=== PATIENT | male | born 1935 | race Caucasian/White ===

== ENCOUNTER 2017-05-19 09:44 | Emergency (ER) | payer MEDICARE, BC ==
[~2017-05-19] VITALS: Ht 170.2 cm; Wt 63.5 kg
[2017-05-19 09:57] VITALS: BP 183/109
[2017-05-19] MEDS ORDERED: NEOMYCIN-BACITRACIN-POLYM UNITDOSE PKG TOP OINT TOP ONE (10:15)
== END 2017-05-19 10:24 | disposition home or self-care (01) ==
LOC: ER 09:44
DX: I83.91 Asymptomatic varicose veins of right lower extremity (principal)

== ENCOUNTER 2018-03-07 03:30 | Inpatient (IN) | payer MEDICARE, OTHER ==
[~2018-03-07] VITALS: Ht 170.2 cm; Wt 62.9 kg
[2018-03-07 04:19] LABS: Hematocrit 21.3 % (41.0-53.0); Mean Corpuscular Hemoglobin 37.7 pg (28.0-32.0); Mean Corpuscular Hgb Conc. 33.1 g/dL (32.0-36.0); Mean Corpuscular Volume 114.1 fL (80.0-100.0); Platelet Count (auto) 110 10^3/uL (140-450); Red Blood Cells 1.87 10^6/uL (4.5-5.90); Red Cell Distribution Width 18.1 % (11.8-14.3)
[2018-03-07 04:34] LABS: INR 1.19 (0.9-1.15); Partial Thromboplastin Time 31.7 sec (23.78-33.04); Prothrombin Time 12.6 sec (9.27-12.13)
[2018-03-07 04:35] LABS: Alanine Aminotransferase 22 U/L (16-61); Albumin 3.6 g/dL (3.4-5.0); Anion Gap 9 (5-15); Aspartate Aminotransferase 19 U/L (15-37); BUN/Creatinine Ratio 22.5; Blood Urea Nitrogen 49 mg/dL (7-18); Calcium 7.5 mg/dL (8.5-10.1); Carbon Dioxide 24 mmol/L (21-32); Chloride 107 mmol/L (98-107); GFR African American 38 mL/min; GFR Non-African American 31 mL/min; Glucose 100 mg/dL (74-106); Magnesium 1.5 mg/dL (1.6-2.6); Sodium 140 mmol/L (136-145)
[2018-03-07 04:44] LABS: Alkaline Phosphatase 59 U/L (45-117); Bilirubin, Total 0.3 mg/dL (0.2-1.0); Total Protein 7.1 g/dL (6.4-8.2)
[2018-03-07 04:45] LABS: White Blood Cell 59.8 10^3/uL (4.4-10.8)
[2018-03-07 05:50] LABS: Band Neutrophils % (manual) 0; Basophils % (manual) 0 (0.0-2.0); Eosinophils % (manual) 0 (0-7); Metamyelocytes % 0; Myelocytes % 0; Promyelocytes % 0; Reactive Lymphocytes 0
[2018-03-07 06:07] LABS: Blast Cells 1; Lymphocytes % (manual) 16 (10.0-50.0); Monocytes % (manual) 80 (0-12)
[2018-03-07] MEDS ORDERED: SODIUM CHLORIDE 0.9% 1,000 ML IV ONE (08:00)
[2018-03-07] MEDS ORDERED: LIDOCAINE 2% (LOCAL ANESTH.) PF 5ml SDV ONE (10:04)
[2018-03-07] MEDS ORDERED: IBUPROFEN 600 MG TAB PO PRN (11:00)
[2018-03-07] MEDS ORDERED: MORPHINE SULF INJ 2 MG/ML SYRINGE 1ML IV PRN ×2 (11:00)
[2018-03-07] MEDS ORDERED: MAGNESIUM SULFATE 1GM/100ML 100 ML IV ONE (11:00)
[2018-03-07] MEDS ORDERED: ACETAMINOPHEN 325 MG TAB PO PRN (11:00)
[2018-03-07] MEDS ORDERED: TEMAZEPAM 15 MG CAP PO PRN (11:00)
[2018-03-07] MEDS ORDERED: ONDANSETRON HCL 4 MG/2 ML VIAL IV PRN (11:00)
[2018-03-07] MEDS ORDERED: FUROSEMIDE 20 MG TAB PO ONE ×2 (11:00→11:15)
[2018-03-07] MEDS ORDERED: NITROGLYCERIN 0.4 MG SL TAB SL PRN (11:00)
[2018-03-07] MEDS ORDERED: ASPirin-EC 81 mg tab PO ONE ×2 (11:00→11:15)
[2018-03-07] MEDS ORDERED: POTASSIUM CHL 20 Meq TABLET PO ONE (11:00)
[2018-03-07] MEDS ORDERED: MULTIPLE VITAMIN TAB PO ONE (11:15)
[2018-03-07] MEDS ORDERED: FAMOTIDINE 20 MG TAB PO ONE (11:15)
[2018-03-07] MEDS ORDERED: POTASSIUM CHL 10 Meq TABLET PO ONE (11:15)
[2018-03-07] MEDS: SODIUM CHLOR 0.9% PF (SALINE LOCK) 10ML VIAL/SYR IV SCH ×2 (12:00→21:55)
[2018-03-07 14:35] VITALS: BP 117/74
[2018-03-07 14:50] VITALS: BP 132/64
[2018-03-07 15:20] VITALS: BP 128/71
[2018-03-07 15:50] VITALS: BP 121/69
[2018-03-07] MEDS ORDERED: LORazepam 2MG/ML-1ML VIAL IV PRN (19:00)
[2018-03-07 20:03] LABS: Folate (Folic Acid) 16.95 ng/mL (5.38-24)
[2018-03-07 20:14] LABS: Urine Bacteria NONE SEEN /hpf (None Seen); Urine Blood 2+ /uL (Negative); Urine Specific Gravity 1.008 (1.001-1.035); Urine WBC 1 /hpf (0 - 3)
[2018-03-07] MEDS: FAMOTIDINE 20 MG TAB PO SCH (21:55)
[2018-03-07] MEDS: CARISOPRODOL 350 MG TAB PO SCH (21:55)
[2018-03-07 23:49] LABS: CSF White Blood Cells 2 CUMM (0-5)
[2018-03-08 05:20] VITALS: BP 123/52
[2018-03-08 06:45] LABS: Hemoglobin 8.4 g/dL (13.5-17.5)
[2018-03-08 06:49] LABS: Hematocrit 24.6 % (41.0-53.0); Mean Corpuscular Hemoglobin 38.2 pg (28.0-32.0); Mean Corpuscular Hgb Conc. 34.3 g/dL (32.0-36.0); Mean Corpuscular Volume 111.3 fL (80.0-100.0); Platelet Count (auto) 109 10^3/uL (140-450); Red Blood Cells 2.21 10^6/uL (4.5-5.90)
[2018-03-08] MEDS: SODIUM CHLOR 0.9% PF (SALINE LOCK) 10ML VIAL/SYR IV SCH ×3 (06:52→22:23)
[2018-03-08 06:53] LABS: Red Cell Distribution Width 21.8 % (11.8-14.3)
[2018-03-08 06:56] LABS: White Blood Cell 68.6 10^3/uL (4.4-10.8)
[2018-03-08 06:58] LABS: Band Neutrophils % (manual) 0; Basophils % (manual) 0 (0.0-2.0); Blast Cells 0; Eosinophils % (manual) 0 (0-7); Metamyelocytes % 0; Myelocytes % 0; Promyelocytes % 0; Reactive Lymphocytes 0
[2018-03-08 07:08] LABS: Albumin 3.6 g/dL (3.4-5.0); BUN/Creatinine Ratio 18.2; Bilirubin, Total 0.8 mg/dL (0.2-1.0); Calcium 7.6 mg/dL (8.5-10.1); Potassium 3.3 mmol/L (3.5-5.1); Total Protein 7.2 g/dL (6.4-8.2)
[2018-03-08 08:00] VITALS: BP 113/61
[2018-03-08] MEDS: POTASSIUM CHL 10 Meq TABLET PO SCH (09:44)
[2018-03-08] MEDS: ASPirin-EC 81 mg tab PO SCH (09:44)
[2018-03-08] MEDS: MULTIPLE VITAMIN TAB PO SCH (09:44)
[2018-03-08] MEDS: FAMOTIDINE 20 MG TAB PO SCH ×2 (09:46→22:20)
[2018-03-08] MEDS: CARISOPRODOL 350 MG TAB PO SCH ×2 (09:46→22:21)
[2018-03-08] MEDS ORDERED: FUROSEMIDE 20 MG TAB PO SCH (10:00)
[2018-03-08] MEDS: ALLOPURINOL 100 MG TAB PO SCH (10:15)
[2018-03-08 10:55] LABS: Lymphocytes % (manual) 21 (10.0-50.0); Monocytes % (manual) 76 (0-12)
[2018-03-08 12:00] VITALS: BP 103/47
[2018-03-08 16:00] VITALS: BP 124/67
[2018-03-08 22:00] VITALS: BP 112/55
[2018-03-08] MEDS: HYDROcodone-ACET 5/325MG TAB PO PRN (22:21)
[2018-03-09] MEDS: SODIUM CHLOR 0.9% PF (SALINE LOCK) 10ML VIAL/SYR IV SCH ×3 (05:15→22:27)
[2018-03-09 05:22] VITALS: BP 110/61
[2018-03-09 06:28] LABS: Hematocrit 23.4 % (41.0-53.0); Hemoglobin 7.9 g/dL (13.5-17.5)
[2018-03-09 06:35] LABS: Mean Corpuscular Hemoglobin 37.1 pg (28.0-32.0); Mean Corpuscular Hgb Conc. 33.6 g/dL (32.0-36.0); Mean Corpuscular Volume 110.5 fL (80.0-100.0); Platelet Count (auto) 99 10^3/uL (140-450); Red Blood Cells 2.12 10^6/uL (4.5-5.90)
[2018-03-09 06:39] LABS: % Iron Saturation 62.7 % (20-55)
[2018-03-09 06:41] LABS: White Blood Cell 77.5 10^3/uL (4.4-10.8)
[2018-03-09 06:42] LABS: Basophils % (manual) 0 (0.0-2.0); Eosinophils % (manual) 0 (0-7); Promyelocytes % 0; Reactive Lymphocytes 0
[2018-03-09 06:55] LABS: Albumin 3.4 g/dL (3.4-5.0); BUN/Creatinine Ratio 17.6; Bilirubin, Total 0.4 mg/dL (0.2-1.0); Calcium 7.6 mg/dL (8.5-10.1); Potassium 3.8 mmol/L (3.5-5.1); Total Protein 6.6 g/dL (6.4-8.2)
[2018-03-09 08:15] LABS: Ferritin 1126.7 ng/mL (10-322)
[2018-03-09 08:16] LABS: Folate (Folic Acid) 7.58 ng/mL (5.38-24)
[2018-03-09] MEDS ORDERED: LIDOCAINE 1% (LOCAL ANESTH.) PF 5ml SDV ONE (08:59)
[2018-03-09 09:00] VITALS: BP 102/61
[2018-03-09] MEDS ORDERED: LIDOCAINE 2%HCL (LOCAL ANESTH.) INJ 10ml MDV IJ ONE ×2 (09:00)
[2018-03-09] MEDS ORDERED: HYDROcodone-ACET 7.5/325MG TAB PO PRN (10:00)
[2018-03-09] MEDS: FAMOTIDINE 20 MG TAB PO SCH ×2 (10:03→22:27)
[2018-03-09] MEDS: MULTIPLE VITAMIN TAB PO SCH (10:03)
[2018-03-09] MEDS: POTASSIUM CHL 10 Meq TABLET PO SCH (10:03)
[2018-03-09] MEDS: ALLOPURINOL 100 MG TAB PO SCH (10:03)
[2018-03-09] MEDS: CARISOPRODOL 350 MG TAB PO SCH ×2 (10:04→22:28)
[2018-03-09] MEDS: ASPirin-EC 81 mg tab PO SCH (10:04)
[2018-03-09] MEDS: HYDROcodone-ACET 5/325MG TAB PO PRN ×2 (10:08→22:32)
[2018-03-09 12:00] LABS: Band Neutrophils % (manual) 2; Blast Cells 3; Lymphocytes % (manual) 7 (10.0-50.0); Metamyelocytes % 2; Myelocytes % 2
[2018-03-09 12:06] LABS: Monocytes % (manual) 81 (0-12)
[2018-03-09 13:00] VITALS: BP 102/54
[2018-03-09 17:00] VITALS: BP 108/58
[2018-03-09 22:00] VITALS: BP 107/55
[2018-03-10] VITALS (12 sets, daily range): BP systolic 97–118; BP diastolic 49–68
[2018-03-10] MEDS: SODIUM CHLOR 0.9% PF (SALINE LOCK) 10ML VIAL/SYR IV SCH ×3 (05:45→21:14)
[2018-03-10 05:49] LABS: Red Blood Cells 2.02 10^6/uL (4.5-5.90)
[2018-03-10 05:54] LABS: Hematocrit 22.4 % (41.0-53.0); Hemoglobin 7.5 g/dL (13.5-17.5); Mean Corpuscular Hemoglobin 36.9 pg (28.0-32.0); Mean Corpuscular Hgb Conc. 33.3 g/dL (32.0-36.0); Mean Corpuscular Volume 111.1 fL (80.0-100.0); Platelet Count (auto) 85 10^3/uL (140-450)
[2018-03-10 06:24] LABS: Red Cell Distribution Width 20.2 % (11.8-14.3); White Blood Cell 79.8 10^3/uL (4.4-10.8)
[2018-03-10 06:25] LABS: Band Neutrophils % (manual) 0; Basophils % (manual) 0 (0.0-2.0); Promyelocytes % 0; Reactive Lymphocytes 0
[2018-03-10] MEDS: DOCUSATE SOD 100 MG CAP PO PRN (06:41)
[2018-03-10 08:43] LABS: Lymphocytes % (manual) 5 (10.0-50.0)
[2018-03-10 08:44] LABS: Blast Cells 2; Eosinophils % (manual) 1 (0-7); Metamyelocytes % 2; Myelocytes % 2
[2018-03-10 08:46] LABS: Monocytes % (manual) 82 (0-12)
[2018-03-10] MEDS: ASPirin-EC 81 mg tab PO SCH (09:38)
[2018-03-10] MEDS: MULTIPLE VITAMIN TAB PO SCH (09:38)
[2018-03-10] MEDS: ALLOPURINOL 100 MG TAB PO SCH (09:38)
[2018-03-10] MEDS: HYDROXYUREA 500 MG CAP PO SCH ×2 (09:39→21:14)
[2018-03-10] MEDS: CARISOPRODOL 350 MG TAB PO SCH ×2 (09:39→21:14)
[2018-03-10] MEDS: POTASSIUM CHL 10 Meq TABLET PO SCH (09:39)
[2018-03-10] MEDS: FAMOTIDINE 20 MG TAB PO SCH ×3 (09:39→21:14)
[2018-03-10] MEDS ORDERED: FUROSEMIDE 20 MG/2 ML VIAL IV ONE (10:15)
[2018-03-10] MEDS ORDERED: POTASSIUM CHL 10 Meq TABLET PO ONE (10:15)
[2018-03-10] MEDS ORDERED: LACTULOSE 20Gm/30ML SOLN PO ONE (10:15)
[2018-03-10] MEDS ORDERED: HYDROcodone-ACET 5/325MG TAB PO PRN (11:15)
[2018-03-10] MEDS ORDERED: MORPHINE SULF INJ 2 MG/ML SYRINGE 1ML IV PRN (11:15)
[2018-03-11 05:00] VITALS: BP 102/56
[2018-03-11 05:28] LABS: Hematocrit 27.8 % (41.0-53.0); Mean Corpuscular Hemoglobin 35.2 pg (28.0-32.0); Platelet Count (auto) 79 10^3/uL (140-450)
[2018-03-11 05:33] LABS: Hemoglobin 9.4 g/dL (13.5-17.5); Mean Corpuscular Hgb Conc. 33.9 g/dL (32.0-36.0); Red Blood Cells 2.68 10^6/uL (4.5-5.90)
[2018-03-11 05:41] LABS: Red Cell Distribution Width 23.2 % (11.8-14.3)
[2018-03-11 05:42] LABS: White Blood Cell 80.5 10^3/uL (4.4-10.8)
[2018-03-11 05:43] LABS: Basophils % (manual) 0 (0.0-2.0); Blast Cells 0; Eosinophils % (manual) 0 (0-7); Myelocytes % 0; Promyelocytes % 0; Reactive Lymphocytes 0
[2018-03-11] MEDS: SODIUM CHLOR 0.9% PF (SALINE LOCK) 10ML VIAL/SYR IV SCH ×3 (05:55→21:40)
[2018-03-11 06:36] LABS: Band Neutrophils % (manual) 1; Lymphocytes % (manual) 8 (10.0-50.0); Metamyelocytes % 1; Monocytes % (manual) 88 (0-12)
[2018-03-11 07:21] VITALS: BP 107/61
[2018-03-11] MEDS: FAMOTIDINE 20 MG TAB PO SCH ×3 (09:38→09:41)
[2018-03-11] MEDS: HYDROXYUREA 500 MG CAP PO SCH ×2 (09:38→21:40)
[2018-03-11] MEDS: ALLOPURINOL 100 MG TAB PO SCH (09:39)
[2018-03-11] MEDS: CARISOPRODOL 350 MG TAB PO SCH ×3 (09:39→21:41)
[2018-03-11] MEDS: MULTIPLE VITAMIN TAB PO SCH (09:39)
[2018-03-11] MEDS: POTASSIUM CHL 10 Meq TABLET PO SCH (09:39)
[2018-03-11] MEDS: DOCUSATE SOD 100 MG CAP PO PRN (09:39)
[2018-03-11] MEDS: ASPirin-EC 81 mg tab PO SCH (09:39)
[2018-03-11] MEDS: LACTULOSE 20Gm/30ML SOLN PO SCH (09:41)
[2018-03-11 13:17] VITALS: BP 106/52
[2018-03-11 16:47] VITALS: BP 105/60
[2018-03-11 22:00] VITALS: BP 100/47
[2018-03-12 05:00] VITALS: BP 118/69
[2018-03-12] MEDS: CARISOPRODOL 350 MG TAB PO SCH ×3 (06:04→21:39)
[2018-03-12] MEDS: SODIUM CHLOR 0.9% PF (SALINE LOCK) 10ML VIAL/SYR IV SCH (06:04)
[2018-03-12 06:05] LABS: Hematocrit 27.8 % (41.0-53.0); Hemoglobin 9.2 g/dL (13.5-17.5); Mean Corpuscular Hemoglobin 34.3 pg (28.0-32.0); Mean Corpuscular Volume 104.1 fL (80.0-100.0); Platelet Count (auto) 75 10^3/uL (140-450); Red Blood Cells 2.67 10^6/uL (4.5-5.90)
[2018-03-12 06:07] LABS: Red Cell Distribution Width 23.1 % (11.8-14.3)
[2018-03-12 06:10] LABS: White Blood Cell 78.7 10^3/uL (4.4-10.8)
[2018-03-12 06:11] LABS: Basophils % (manual) 0 (0.0-2.0); Metamyelocytes % 0; Myelocytes % 0; Promyelocytes % 0; Reactive Lymphocytes 0
[2018-03-12 09:01] VITALS: BP 105/62
[2018-03-12] MEDS: FAMOTIDINE 20 MG TAB PO SCH (10:00)
[2018-03-12] MEDS ORDERED: HYDROcodone-ACET 7.5/325MG TAB PO PRN (10:00)
[2018-03-12] MEDS: MULTIPLE VITAMIN TAB PO SCH (10:00)
[2018-03-12] MEDS: LACTULOSE 20Gm/30ML SOLN PO SCH (10:00)
[2018-03-12] MEDS: ASPirin-EC 81 mg tab PO SCH (10:55)
[2018-03-12] MEDS: HYDROXYUREA 500 MG CAP PO SCH ×2 (10:55→21:38)
[2018-03-12] MEDS: ALLOPURINOL 100 MG TAB PO SCH (10:56)
[2018-03-12] MEDS: SODIUM CHLORIDE 0.9% 1,000 ML IV SCH (12:10)
[2018-03-12 13:00] VITALS: BP 110/65
[2018-03-12 13:32] LABS: Band Neutrophils % (manual) 2; Lymphocytes % (manual) 5 (10.0-50.0); Monocytes % (manual) 85 (0-12)
[2018-03-12 13:33] LABS: Blast Cells 1; Eosinophils % (manual) 1 (0-7)
[2018-03-12] MEDS ORDERED: SODIUM CHLORIDE 0.9% 1,000 ML IV ONE (15:15)
[2018-03-12 17:16] VITALS: BP 127/73
[2018-03-12 17:53] LABS: Urine Amorphous Crystal FEW /hpf (None Seen); Urine Bacteria FEW /hpf (None Seen); Urine Blood 3+ /uL (Negative); Urine Specific Gravity 1.015 (1.001-1.035); Urine WBC 65 /hpf (0 - 3)
[2018-03-12 18:08] LABS: Protein, Urine 127.6 mg/dL (0.0-11.9)
[2018-03-12 22:00] VITALS: BP 122/56
[2018-03-13] MEDS: SODIUM CHLORIDE 0.9% 1,000 ML IV SCH ×3 (00:35→15:48)
[2018-03-13 05:00] VITALS: BP 97/58
[2018-03-13] MEDS: CARISOPRODOL 350 MG TAB PO SCH ×3 (06:07→22:00)
[2018-03-13 06:50] LABS: Hemoglobin 8.3 g/dL (13.5-17.5); Platelet Count (auto) 62 10^3/uL (140-450)
[2018-03-13 07:13] LABS: Hematocrit 24.9 % (41.0-53.0); Mean Corpuscular Hemoglobin 34.9 pg (28.0-32.0); Mean Corpuscular Hgb Conc. 33.5 g/dL (32.0-36.0); Mean Corpuscular Volume 104.3 fL (80.0-100.0); Red Blood Cells 2.39 10^6/uL (4.5-5.90)
[2018-03-13 07:15] LABS: Albumin 2.8 g/dL (3.4-5.0); BUN/Creatinine Ratio 31.4; Bilirubin, Total 0.5 mg/dL (0.2-1.0); Calcium 6.9 mg/dL (8.5-10.1); Phosphorus 5.3 mg/dL (2.5-4.90); Potassium 3.4 mmol/L (3.5-5.1); Uric Acid 11.3 mg/dL (3.5-7.2)
[2018-03-13 07:33] LABS: Red Cell Distribution Width 22.4 % (11.8-14.3)
[2018-03-13 07:34] LABS: White Blood Cell 80.7 10^3/uL (4.4-10.8)
[2018-03-13 07:35] LABS: Band Neutrophils % (manual) 0; Basophils % (manual) 0 (0.0-2.0); Metamyelocytes % 0; Myelocytes % 0; Promyelocytes % 0; Reactive Lymphocytes 0
[2018-03-13 09:00] VITALS: BP 99/57
[2018-03-13] MEDS: ASPirin-EC 81 mg tab PO SCH (09:39)
[2018-03-13] MEDS: HYDROXYUREA 500 MG CAP PO SCH ×2 (09:42→22:00)
[2018-03-13] MEDS: MULTIPLE VITAMIN TAB PO SCH (09:42)
[2018-03-13] MEDS: FAMOTIDINE 20 MG TAB PO SCH (09:42)
[2018-03-13] MEDS: ALLOPURINOL 100 MG TAB PO SCH (09:43)
[2018-03-13] MEDS: LACTULOSE 20Gm/30ML SOLN PO SCH (10:00)
[2018-03-13] MEDS ORDERED: POTASSIUM CHL 20 Meq TABLET PO ONE (10:30)
[2018-03-13] MEDS ORDERED: cefTRIAXone 1GM/10ml IVPUSH 10 ML IV ONE (10:30)
[2018-03-13] MEDS ORDERED: THROAT LOZENGES(CEPASTAT) MT PRN (11:15)
[2018-03-13 13:24] VITALS: BP 92/53
[2018-03-13] MEDS: LINEZOLID 600MG/300ML 300 ML IV SCH (13:35)
[2018-03-13 14:11] LABS: Eosinophils % (manual) 1 (0-7); Lymphocytes % (manual) 5 (10.0-50.0)
[2018-03-13 14:12] LABS: Blast Cells 1
[2018-03-13 14:13] LABS: Monocytes % (manual) 84 (0-12)
[2018-03-13] MEDS ORDERED: SODIUM CHLORIDE 0.9% 1,000 ML IV ONE (15:45)
[2018-03-13 17:06] LABS: Hematocrit 25.1 % (41.0-53.0); Hemoglobin 8.4 g/dL (13.5-17.5)
[2018-03-13 17:28] VITALS: BP 110/62
[2018-03-13 22:00] VITALS: BP 115/63
[2018-03-14] MEDS: LINEZOLID 600MG/300ML 300 ML IV SCH ×2 (00:25→09:37)
[2018-03-14 05:00] VITALS: BP 113/67
[2018-03-14] MEDS: CARISOPRODOL 350 MG TAB PO SCH (06:00)
[2018-03-14] MEDS: SODIUM CHLORIDE 0.9% 1,000 ML IV SCH ×3 (06:16→23:48)
[2018-03-14 08:05] LABS: Hemoglobin 8.4 g/dL (13.5-17.5)
[2018-03-14 08:07] LABS: Hematocrit 24.8 % (41.0-53.0); Mean Corpuscular Hemoglobin 35.5 pg (28.0-32.0); Mean Corpuscular Volume 104.3 fL (80.0-100.0); Platelet Count (auto) 52 10^3/uL (140-450); Red Blood Cells 2.37 10^6/uL (4.5-5.90)
[2018-03-14 08:11] LABS: Red Cell Distribution Width 21.9 % (11.8-14.3)
[2018-03-14 08:18] LABS: White Blood Cell 45.1 10^3/uL (4.4-10.8)
[2018-03-14 08:19] LABS: Band Neutrophils % (manual) 0; Basophils % (manual) 0 (0.0-2.0); Blast Cells 0; Eosinophils % (manual) 0 (0-7); Metamyelocytes % 0; Myelocytes % 0; Promyelocytes % 0; Reactive Lymphocytes 0
[2018-03-14 08:20] LABS: BUN/Creatinine Ratio 33.1; Calcium 6.6 mg/dL (8.5-10.1); Potassium 3.5 mmol/L (3.5-5.1)
[2018-03-14 09:00] VITALS: BP 122/58
[2018-03-14] MEDS ORDERED: TEMAZEPAM 15 MG CAP PO PRN (09:30)
[2018-03-14] MEDS ORDERED: HYDROcodone-ACET 5/325MG TAB PO PRN (09:30)
[2018-03-14] MEDS: LACTULOSE 20Gm/30ML SOLN PO SCH (09:37)
[2018-03-14] MEDS: ASPirin-EC 81 mg tab PO SCH (09:37)
[2018-03-14] MEDS: cefTRIAXone 1GM/10ml IVPUSH 10 ML IV SCH (09:37)
[2018-03-14] MEDS: ALLOPURINOL 100 MG TAB PO SCH (09:38)
[2018-03-14] MEDS: MULTIPLE VITAMIN TAB PO SCH (09:38)
[2018-03-14] MEDS: HYDROXYUREA 500 MG CAP PO SCH ×2 (09:38→21:19)
[2018-03-14] MEDS: FAMOTIDINE 20 MG TAB PO SCH (09:38)
[2018-03-14 12:08] LABS: Lymphocytes % (manual) 9 (10.0-50.0); Monocytes % (manual) 87 (0-12)
[2018-03-14 13:00] VITALS: BP 105/61
[2018-03-14 17:00] VITALS: BP 123/86
[2018-03-14 20:00] VITALS: BP 115/55
[2018-03-14 21:54] VITALS: BP 115/55
[2018-03-15 05:46] VITALS: BP 96/61
[2018-03-15 07:23] LABS: BUN/Creatinine Ratio 35.8; Calcium 6.8 mg/dL (8.5-10.1); Potassium 3.3 mmol/L (3.5-5.1)
[2018-03-15] MEDS: SODIUM CHLORIDE 0.9% 1,000 ML IV SCH (08:00)
[2018-03-15 08:06] LABS: Hematocrit 23.3 % (41.0-53.0); Hemoglobin 7.8 g/dL (13.5-17.5); Mean Corpuscular Hemoglobin 35.2 pg (28.0-32.0); Mean Corpuscular Hgb Conc. 33.6 g/dL (32.0-36.0); Mean Corpuscular Volume 104.9 fL (80.0-100.0); Platelet Count (auto) 45 10^3/uL (140-450); Red Blood Cells 2.22 10^6/uL (4.5-5.90)
[2018-03-15 08:09] LABS: Red Cell Distribution Width 21.7 % (11.8-14.3)
[2018-03-15 08:11] LABS: Band Neutrophils % (manual) 0; Basophils % (manual) 0 (0.0-2.0); Blast Cells 0; Eosinophils % (manual) 0 (0-7); Metamyelocytes % 0; Myelocytes % 0; Promyelocytes % 0; Reactive Lymphocytes 0
[2018-03-15 09:00] VITALS: BP 101/61
[2018-03-15] MEDS ORDERED: HYD500C PO (09:44)
[2018-03-15] MEDS ORDERED: ALL100T PO (09:44)
[2018-03-15] MEDS: cefTRIAXone 1GM/10ml IVPUSH 10 ML IV SCH (09:56)
[2018-03-15] MEDS: ASPirin-EC 81 mg tab PO SCH (09:59)
[2018-03-15] MEDS: LACTULOSE 20Gm/30ML SOLN PO SCH (09:59)
[2018-03-15] MEDS: MULTIPLE VITAMIN TAB PO SCH (10:00)
[2018-03-15] MEDS ORDERED: HYDROXYUREA 500 MG CAP PO SCH (10:00)
[2018-03-15] MEDS: ALLOPURINOL 100 MG TAB PO SCH (10:00)
[2018-03-15] MEDS: FAMOTIDINE 20 MG TAB PO SCH (10:00)
[2018-03-15 10:12] LABS: Lymphocytes % (manual) 10 (10.0-50.0)
[2018-03-15 10:16] LABS: Monocytes % (manual) 88 (0-12)
== END 2018-03-15 11:15 | disposition home or self-care (01) | DRG 834 ==
LOC: ER 03:30 → TELE 03:31 → TELE-CENTR 23:17 → CENTRAL 03-08 12:56
PROVIDERS: ADMIT Internal Medicine; ATTEND Internal Medicine
PROC: 30233N1 Transfusion of Nonautologous Red Blood Cells into Peripheral Vein, Percutaneous Approach (ICD-10-PCS; 2018-03-07)
PROC: 009U3ZX Drainage of Spinal Canal, Percutaneous Approach, Diagnostic (ICD-10-PCS; 2018-03-07)
PROC: B01B1ZZ Fluoroscopy of Spinal Cord using Low Osmolar Contrast (ICD-10-PCS; 2018-03-07)
PROC: 07DR3ZX Extraction of Iliac Bone Marrow, Percutaneous Approach, Diagnostic (ICD-10-PCS; principal; 2018-03-09)
DX: C93.00 Acute monoblastic/monocytic leukemia, not having achieved remission (principal); E88.3 Tumor lysis syndrome; N17.0 Acute kidney failure with tubular necrosis; I13.0 Hypertensive heart and chronic kidney disease with heart failure and stage 1 through stage 4 chronic kidney disease, or unspecified chronic kidney disease; D68.9 Coagulation defect, unspecified; L03.115 Cellulitis of right lower limb; N39.0 Urinary tract infection, site not specified; Z66 Do not resuscitate; M40.202 Unspecified kyphosis, cervical region; I50.9 Heart failure, unspecified; D63.8 Anemia in other chronic diseases classified elsewhere; E87.6 Hypokalemia; E83.42 Hypomagnesemia; N18.3 Chronic kidney disease, stage 3 (moderate); D50.9 Iron deficiency anemia, unspecified; D69.6 Thrombocytopenia, unspecified; E03.9 Hypothyroidism, unspecified; E86.0 Dehydration; M19.90 Unspecified osteoarthritis, unspecified site; M50.30 Other cervical disc degeneration, unspecified cervical region; M40.203 Unspecified kyphosis, cervicothoracic region; M85.80 Other specified disorders of bone density and structure, unspecified site; N20.0 Calculus of kidney; Z82.49 Family history of ischemic heart disease and other diseases of the circulatory system; Z82.5 Family history of asthma and other chronic lower respiratory diseases
CPT/HCPCS: 36415; 36430; 62272; 70450; 71045; 72125; 76775; 80048; 80053; 81001; 82570; 82607; 82728; 82746; 82945; 83010; 83540; 83550; 83605; 83615; 83735; 83880; 84100; 84156; 84157; 84300; 84443; 84484; 84550; 85007; 85014; 85018; 85025; 85027; 85045; 85097; 85610; 85652; 85730; 86850; 86880; 86900; 86901; 86920; 87040; 87070; 87086; 87205; 88185; 88291; 89051; 93005; 93306; 93971; 96361; 96365; A6257; J0696; J2001

== ENCOUNTER → 2018-03-22 | Outpatient (CLI) | payer MEDICARE, OTHER ==
[~2018-03-22] MED LIST: ALL100T PO; HYD500C PO
[2018-03-22 10:37] LABS: White Blood Cell 7.4 10^3/uL (4.4-10.8)
[2018-03-22 10:39] LABS: Hematocrit 18.2 % (41.0-53.0); Mean Corpuscular Hemoglobin 36.9 pg (28.0-32.0); Mean Corpuscular Hgb Conc. 34.9 g/dL (32.0-36.0); Mean Corpuscular Volume 105.5 fL (80.0-100.0); Platelet Count (auto) 74 10^3/uL (140-450); Red Blood Cells 1.72 10^6/uL (4.5-5.90)
[2018-03-22 10:52] LABS: Red Cell Distribution Width 21.5 % (11.8-14.3)
[2018-03-22 10:56] LABS: Albumin 2.7 g/dL (3.4-5.0); BUN/Creatinine Ratio 26.3; Bilirubin, Total 0.4 mg/dL (0.2-1.0); Calcium 7.5 mg/dL (8.5-10.1); Potassium 4.2 mmol/L (3.5-5.1); Total Protein 6.5 g/dL (6.4-8.2)
[2018-03-22 11:00] LABS: Hemoglobin 6.4 g/dL (13.5-17.5)
[2018-03-22 11:02] LABS: Band Neutrophils % (manual) 0; Basophils % (manual) 0 (0.0-2.0); Blast Cells 0; Eosinophils % (manual) 0 (0-7); Metamyelocytes % 0; Myelocytes % 0; Promyelocytes % 0; Reactive Lymphocytes 0
[2018-03-22 11:46] LABS: Lymphocytes % (manual) 20 (10.0-50.0); Monocytes % (manual) 69 (0-12)
== END | disposition home or self-care (01) ==
LOC: LAB 10:13
PROVIDERS: ATTEND Internal Medicine
DX: D72.829 Elevated white blood cell count, unspecified (principal); D63.8 Anemia in other chronic diseases classified elsewhere
CPT/HCPCS: 36415; 80053; 83615; 85007; 85027

== ENCOUNTER → 2018-03-24 | Day surgery (SDC) | payer MEDICARE, OTHER ==
[~2018-03-24] MED LIST changes: +FUROSEMIDE 20 MG/2 ML VIAL IV ONE
== END | disposition home or self-care (01) ==
LOC: SUR 08:06
PROVIDERS: ATTEND Internal Medicine
DX: D72.829 Elevated white blood cell count, unspecified (principal); D63.8 Anemia in other chronic diseases classified elsewhere
CPT/HCPCS: 36415; 36430; 84550; 86850; 86900; 86901; 86920; J1940; P9016

== ENCOUNTER → 2018-03-24 | Day surgery (SDC) | payer MEDICARE, OTHER ==
[2018-03-24 11:00] VITALS: BP 147/72
== END | disposition home or self-care (01) ==
LOC: LAB 03-23 10:35 → SUR 08:06 → EDSTATUS 09:03
PROVIDERS: ATTEND Internal Medicine
DX: D72.829 Elevated white blood cell count, unspecified (principal); Z53.8 Procedure and treatment not carried out for other reasons; D63.8 Anemia in other chronic diseases classified elsewhere
CPT/HCPCS: 36415; 84550; 86850; 86900; 86901; 86920

== ENCOUNTER → 2018-03-30 | Outpatient (CLI) | payer MEDICARE, OTHER ==
[~2018-03-30] MED LIST changes: -FUROSEMIDE 20 MG/2 ML VIAL IV ONE
[2018-03-30 10:56] LABS: Hemoglobin 7.6 g/dL (13.5-17.5); Platelet Count (auto) 69 10^3/uL (140-450); White Blood Cell 3.3 10^3/uL (4.4-10.8)
[2018-03-30 10:59] LABS: Hematocrit 22.2 % (41.0-53.0); Mean Corpuscular Hemoglobin 33.6 pg (28.0-32.0); Mean Corpuscular Hgb Conc. 34.1 g/dL (32.0-36.0); Mean Corpuscular Volume 98.5 fL (80.0-100.0); Red Blood Cells 2.25 10^6/uL (4.5-5.90)
[2018-03-30 11:17] LABS: BUN/Creatinine Ratio 27.4; Bilirubin, Total 0.7 mg/dL (0.2-1.0); Calcium 7.1 mg/dL (8.5-10.1); Potassium 3.6 mmol/L (3.5-5.1); Total Protein 6.6 g/dL (6.4-8.2); Uric Acid 8.1 mg/dL (3.5-7.2)
[2018-03-30 11:25] LABS: Red Cell Distribution Width 22.3 % (11.8-14.3)
[2018-03-30 11:26] LABS: Basophils % (manual) 0 (0.0-2.0); Blast Cells 0; Metamyelocytes % 0; Promyelocytes % 0; Reactive Lymphocytes 0
[2018-03-30 12:34] LABS: Band Neutrophils % (manual) 5; Eosinophils % (manual) 1 (0-7); Lymphocytes % (manual) 30 (10.0-50.0); Monocytes % (manual) 33 (0-12); Myelocytes % 2
== END | disposition home or self-care (01) ==
LOC: LAB 10:23
PROVIDERS: ATTEND Internal Medicine
DX: D72.829 Elevated white blood cell count, unspecified (principal); D63.8 Anemia in other chronic diseases classified elsewhere; I50.9 Heart failure, unspecified
CPT/HCPCS: 36415; 80053; 84550; 85007; 85027

== ENCOUNTER → 2018-04-07 | Outpatient (CLI) | payer MEDICARE, OTHER ==
[2018-04-07 10:16] LABS: Hemoglobin 7.5 g/dL (13.5-17.5); White Blood Cell 7.9 10^3/uL (4.4-10.8)
[2018-04-07 10:17] LABS: Hematocrit 21.7 % (41.0-53.0); Mean Corpuscular Hgb Conc. 34.7 g/dL (32.0-36.0); Platelet Count (auto) 74 10^3/uL (140-450); Red Blood Cells 2.21 10^6/uL (4.5-5.90)
[2018-04-07 10:46] LABS: Red Cell Distribution Width 21.8 % (11.8-14.3)
[2018-04-07 10:48] LABS: Basophils % (manual) 0 (0.0-2.0); Blast Cells 0; Eosinophils % (manual) 0 (0-7); Myelocytes % 0; Promyelocytes % 0; Reactive Lymphocytes 0
[2018-04-07 10:54] LABS: Albumin 3.3 g/dL (3.4-5.0); BUN/Creatinine Ratio 17.9; Bilirubin, Total 0.5 mg/dL (0.2-1.0); Calcium 7.6 mg/dL (8.5-10.1); Total Protein 6.8 g/dL (6.4-8.2); Uric Acid 8.8 mg/dL (3.5-7.2)
[2018-04-07 14:23] LABS: Band Neutrophils % (manual) 3; Lymphocytes % (manual) 41 (10.0-50.0)
[2018-04-07 14:24] LABS: Metamyelocytes % 1; Monocytes % (manual) 51 (0-12)
== END | disposition home or self-care (01) ==
LOC: LAB 09:55
PROVIDERS: ATTEND Internal Medicine
DX: D72.829 Elevated white blood cell count, unspecified (principal); D63.8 Anemia in other chronic diseases classified elsewhere; E03.9 Hypothyroidism, unspecified
CPT/HCPCS: 36415; 80053; 83615; 84550; 85007; 85027

== ENCOUNTER 2018-04-11 19:39 | Inpatient (IN) | payer MEDICARE, OTHER ==
[~2018-04-11] VITALS: Ht 170.2 cm; Wt 50.3 kg
[2018-04-11 21:34] LABS: Urine Bacteria MANY /hpf (None Seen); Urine Blood 2+ /uL (Negative); Urine Hyaline Cast FEW /lpf (0 - 2); Urine Specific Gravity 1.017 (1.001-1.035); Urine WBC 741 /hpf (0 - 3); Urine WBC Clumps PRESENT /hpf (None Seen)
[2018-04-11 22:13] LABS: Albumin 3.2 g/dL (3.4-5.0); BUN/Creatinine Ratio 15.7; Calcium 7.9 mg/dL (8.5-10.1); Magnesium 1.2 mg/dL (1.6-2.6)
[2018-04-11 22:18] LABS: Bilirubin, Total 0.5 mg/dL (0.2-1.0); Total Protein 6.7 g/dL (6.4-8.2)
[2018-04-11 22:41] LABS: Hematocrit 24.8 % (41.0-53.0); Hemoglobin 8.3 g/dL (13.5-17.5); Mean Corpuscular Hemoglobin 33.5 pg (28.0-32.0); Mean Corpuscular Hgb Conc. 33.3 g/dL (32.0-36.0); Mean Corpuscular Volume 100.5 fL (80.0-100.0); Platelet Count (auto) 72 10^3/uL (140-450); Red Blood Cells 2.47 10^6/uL (4.5-5.90)
[2018-04-11 22:42] LABS: Red Cell Distribution Width 26.7 % (11.8-14.3)
[2018-04-11 22:45] LABS: White Blood Cell 96.2 10^3/uL (4.4-10.8)
[2018-04-11 22:46] LABS: Band Neutrophils % (manual) 0; Basophils % (manual) 0 (0.0-2.0); Eosinophils % (manual) 0 (0-7); Metamyelocytes % 0; Myelocytes % 0; Promyelocytes % 0; Reactive Lymphocytes 0
[2018-04-11 22:54] LABS: Prothrombin Time 19.5 sec (9.27-12.13)
[2018-04-11 22:55] LABS: INR 1.89 (0.9-1.15); Partial Thromboplastin Time 34.6 sec (23.78-33.04)
[2018-04-12 01:56] LABS: Blast Cells 2; Lymphocytes % (manual) 8 (10.0-50.0); Monocytes % (manual) 89 (0-12)
[2018-04-12] MEDS ORDERED: VANCOMYCIN 1GM/250ML 250 ML IV ONE (03:00)
[2018-04-12] MEDS ORDERED: SODIUM CHLORIDE 0.9% 1,000 ML IV ONE (03:00)
[2018-04-12] MEDS ORDERED: cefTRIAXone 1GM/10ml IVPUSH 10 ML IV ONE (03:00)
[2018-04-12] MEDS ORDERED: ACETAMINOPHEN 500 MG TAB PO PRN (07:30)
[2018-04-12] MEDS ORDERED: VANCOMYCIN PER PHARMACY 0 MG IV SCH (07:30)
[2018-04-12] MEDS: SODIUM CHLORIDE 0.9% 1,000 ML IV SCH (09:15)
[2018-04-12 10:01] LABS: Hemoglobin 7.3 g/dL (13.5-17.5); Platelet Count (auto) 57 10^3/uL (140-450); Red Blood Cells 2.25 10^6/uL (4.5-5.90)
[2018-04-12 10:04] LABS: Hematocrit 22.6 % (41.0-53.0); Mean Corpuscular Hemoglobin 32.5 pg (28.0-32.0); Mean Corpuscular Hgb Conc. 32.2 g/dL (32.0-36.0); Mean Corpuscular Volume 100.8 fL (80.0-100.0)
[2018-04-12 10:13] LABS: Red Cell Distribution Width 27.6 % (11.8-14.3)
[2018-04-12 10:19] LABS: White Blood Cell 86.9 10^3/uL (4.4-10.8)
[2018-04-12 10:20] LABS: Basophils % (manual) 0 (0.0-2.0); Eosinophils % (manual) 0 (0-7); Promyelocytes % 0; Reactive Lymphocytes 0
[2018-04-12 10:24] LABS: Albumin 2.9 g/dL (3.4-5.0); BUN/Creatinine Ratio 18.1; Bilirubin, Total 0.4 mg/dL (0.2-1.0); Calcium 7.2 mg/dL (8.5-10.1); Potassium 3.4 mmol/L (3.5-5.1)
[2018-04-12 11:00] LABS: Band Neutrophils % (manual) 2; Blast Cells 2; Lymphocytes % (manual) 13 (10.0-50.0); Metamyelocytes % 5
[2018-04-12 11:02] LABS: Monocytes % (manual) 73 (0-12); Myelocytes % 2
[2018-04-12] MEDS: PIPERACILLIN-TAZOB 2.25GM 50 ML IV SCH ×2 (11:55→20:19)
[2018-04-12] MEDS ORDERED: PIPERACILLIN-TAZOB 3.375GM 100 ML IV SCH (12:00)
[2018-04-12] MEDS: ONDANSETRON HCL 4 MG/2 ML VIAL IV PRN (12:04)
[2018-04-12] MEDS: MORPHINE SULF INJ 2 MG/ML SYRINGE 1ML IV PRN (12:04)
[2018-04-12 19:00] VITALS: BP 120/47
[2018-04-12 22:00] VITALS: BP 120/47
[2018-04-13] MEDS: SODIUM CHLORIDE 0.9% 1,000 ML IV SCH ×2 (02:26→17:31)
[2018-04-13 04:51] VITALS: BP 103/52
[2018-04-13] MEDS: PIPERACILLIN-TAZOB 2.25GM 50 ML IV SCH ×5 (05:23→23:40)
[2018-04-13 05:38] LABS: Albumin 2.9 g/dL (3.4-5.0); Bilirubin, Total 0.5 mg/dL (0.2-1.0); Calcium 7.1 mg/dL (8.5-10.1); Potassium 3.5 mmol/L (3.5-5.1); Total Protein 5.9 g/dL (6.4-8.2)
[2018-04-13] MEDS ORDERED: ADENOSINE 44 MG in GIVE UN-DILUTED 0 ML IV ONE (09:15)
[2018-04-13 09:51] VITALS: BP 111/61
[2018-04-13] MEDS ORDERED: VANCOMYCIN 1GM/250ML 250 ML IV ONE (11:00)
[2018-04-13] MEDS: ONDANSETRON HCL 4 MG/2 ML VIAL IV PRN (11:09)
[2018-04-13 22:00] VITALS: BP 129/61
[2018-04-14] VITALS (9 sets, daily range): BP systolic 93–134; BP diastolic 46–76
[2018-04-14 05:51] LABS: Hematocrit 22.1 % (41.0-53.0); Mean Corpuscular Hemoglobin 32.8 pg (28.0-32.0); Mean Corpuscular Hgb Conc. 31.4 g/dL (32.0-36.0); Mean Corpuscular Volume 104.4 fL (80.0-100.0); Platelet Count (auto) 46 10^3/uL (140-450); Red Blood Cells 2.12 10^6/uL (4.5-5.90)
[2018-04-14 05:53] LABS: Albumin 2.6 g/dL (3.4-5.0); BUN/Creatinine Ratio 15.4; Bilirubin, Total 0.5 mg/dL (0.2-1.0); Potassium 3.3 mmol/L (3.5-5.1); Total Protein 5.7 g/dL (6.4-8.2)
[2018-04-14] MEDS: PIPERACILLIN-TAZOB 2.25GM 50 ML IV SCH ×3 (05:54→18:19)
[2018-04-14 05:59] LABS: White Blood Cell 138.7 10^3/uL (4.4-10.8)
[2018-04-14 06:00] LABS: Hemoglobin 6.9 g/dL (13.5-17.5); Red Cell Distribution Width 28.1 % (11.8-14.3)
[2018-04-14 06:01] LABS: Band Neutrophils % (manual) 0; Basophils % (manual) 0 (0.0-2.0); Myelocytes % 0; Promyelocytes % 0; Reactive Lymphocytes 0
[2018-04-14] MEDS: HYDROcodone-ACET 5/325MG TAB PO PRN ×3 (08:39→23:54)
[2018-04-14] MEDS: SODIUM CHLORIDE 0.9% 1,000 ML IV SCH (08:40)
[2018-04-14] MEDS ORDERED: HYDROXYUREA 500 MG CAP PO SCH ×2 (10:00→22:00)
[2018-04-14] MEDS ORDERED: ALLOPURINOL 100 MG TAB PO SCH (10:00)
[2018-04-14] MEDS ORDERED: HYDROXYUREA 500 MG CAP PO ONE (10:30)
[2018-04-14 12:06] LABS: Blast Cells 2; Eosinophils % (manual) 1 (0-7); Lymphocytes % (manual) 8 (10.0-50.0); Metamyelocytes % 2
[2018-04-14 12:08] LABS: Monocytes % (manual) 83 (0-12)
[2018-04-14] MEDS ORDERED: VANCOMYCIN 500 MG in D5W 5% 100 ML IV ONE (13:00)
[2018-04-14 19:06] LABS: Urine Bacteria FEW /hpf (None Seen); Urine Blood 2+ /uL (Negative); Urine Specific Gravity 1.014 (1.001-1.035); Urine WBC 4 /hpf (0 - 3)
[2018-04-14 19:25] LABS: Protein, Urine 131.1 mg/dL (0.0-11.9)
[2018-04-14] MEDS: MORPHINE SULF INJ 2 MG/ML SYRINGE 1ML IV PRN (21:14)
[2018-04-15] MEDS: PIPERACILLIN-TAZOB 2.25GM 50 ML IV SCH (02:10)
[2018-04-15] MEDS: SODIUM CHLORIDE 0.9% 1,000 ML IV SCH (02:11)
== END 2018-04-15 08:30 | disposition expired | DRG 871 ==
LOC: ER 19:39 → TELE 19:40 → TELE-CENTR 04-12 18:58
PROVIDERS: ADMIT Nurse Practitioner Family; ATTEND Family Medicine
PROC: 30233N1 Transfusion of Nonautologous Red Blood Cells into Peripheral Vein, Percutaneous Approach (ICD-10-PCS; principal; 2018-04-14)
DX: A41.9 Sepsis, unspecified organism (principal); N17.0 Acute kidney failure with tubular necrosis; C92.00 Acute myeloblastic leukemia, not having achieved remission; N39.0 Urinary tract infection, site not specified; I50.9 Heart failure, unspecified; D63.8 Anemia in other chronic diseases classified elsewhere; D69.6 Thrombocytopenia, unspecified; Z66 Do not resuscitate; E83.51 Hypocalcemia; E86.0 Dehydration; M40.209 Unspecified kyphosis, site unspecified; N18.3 Chronic kidney disease, stage 3 (moderate); N40.0 Benign prostatic hyperplasia without lower urinary tract symptoms; Z82.49 Family history of ischemic heart disease and other diseases of the circulatory system; Z82.5 Family history of asthma and other chronic lower respiratory diseases; Z90.79 Acquired absence of other genital organ(s); Z92.21 Personal history of antineoplastic chemotherapy
CPT/HCPCS: 36415; 71045; 73080; 78452; 80053; 80202; 81001; 82570; 82962; 83605; 83735; 83880; 84156; 84300; 84484; 84550; 85007; 85027; 85379; 85610; 85730; 86850; 86900; 86901; 86920; 87040; 87081; 87086; 87088; 87186; 93005; 93017; 96361; 96365; 96366; 96375; A6257; J0153; J0696; J2405; J2543; J7060